=== PATIENT | female | born 1955 | race African-American/Black ===

== ENCOUNTER 2017-10-14 07:37 | Emergency (ER) | payer OTHER ==
[2017-10-14 07:49] VITALS: TEMP 98.3; BMI 29.5
--- NOTE | 2017-10-14 08:20 | PDOC ---
History of Present Illness - General Chief Complaint: Nasal Bleeding Stated Complaint: EPISODE OF EPISTAXIS Time Seen by Provider: 10/14/17 08:03 - History of Present Illness Initial Comments: 10/14/17 08:13 Chief complaint: Nosebleed History of present illness: Patient awoke this morning and soon began to have bleeding from the left side of her nose. This persisted for approximately 15 or 20 minutes, resulted in expectoration of several large clots, but resolved spontaneously. There is no bleeding now. She had a mild headache at the time, which is also resolved. She has had recent sinus congestion but denies any trauma, or picking. She has been using an air conditioner. Review of systems: Denies lightheadedness, dizziness, vertigo, unsteadiness of gait, chest pain, shortness of breath, abdominal pain, nausea, vomiting, diarrhea, visual or focal neurologic symptoms, unsteadiness of gait. There is been no sign of bleeding elsewhere, including urine, stool, gums, or joints. Past medical history: She had a similar episode of epistaxis approximately 2 weeks ago that resolved spontaneously. She has no medical problems and takes no daily medication. Specifically, she denies hypertension, diabetes, heart disease. 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 Otherwise negative Family history: No immediate family members with hypertension, diabetes, heart disease, blood disease or blood dyscrasias. Physical exam: Alert and oriented well-developed well-nourished no acute distress cheerful and cooperative Afebrile, vital signs normal except for minimally elevated blood pressure of 150 /75 on presentation. This is likely due to mild anxiety from the nosebleed. She is particularly distressed by the clots PERRLA, fundi benign, ENT clear. There is a small irritation on the left nasal septum, anteriorly, that may have been the site of the bleeding. However, there is no bleeding or bruising of present and no blood or clot in the nares or the throat. Neck supple without bruit mass or nodes Chest clear with full breath sounds bilaterally CV S1 and S2 normal without murmur rub or gallop pulses full and symmetric no JVD or edema no bruits Abdomen benign Skin clear, no rash, adequate turgor and wet mucous membranes No muscle or joint pain or swelling Impression: Epistaxis, self-limited, no sign of coagulation disorder or other blood disease. Probably the result of his severe conditioning and/or sinus symptoms Plan: Recommended to abstain from use of air-conditioner for several days. Control of nosebleeds with pressure and cool compresses or ice was reviewed. Reassured. Return if bleeding recurs and isn't controlled, or if other symptoms such as lightheadedness dizziness or chest pain develop. Fully ambulatory and in no distress upon discharge to follow-up as directed Past History - Past Medical History Allergies/Adverse Reactions: Allergies Allergy/AdvReac Type Severity Reaction Status Date / Time No Known Allergies Allergy Verified 10/14/17 07:38 Home Medications: Ambulatory Orders NK [No Known Home Medication] 10/14/17 COPD: No Other medical history: denies - Suicide/Smoking/Psychosocial Hx Smoking Status: Yes Smoking History: Former smoker Have you smoked in the past 12 months: No Number of Cigarettes Smoked Daily: 0 If you are a former smoker, when did you quit?: 15 years Information on smoking cessation initiated: No Hx Alcohol Use: Yes (social) Drug/Substance Use Hx: No Substance Use Type: Alcohol *Physical Exam - Vital Signs Last Vital Signs Temp Pulse Resp BP Pulse Ox 98.3 F 78 20 150/78 100 10/14/17 07:38 10/14/17 07:38 10/14/17 07:38 10/14/17 07:38 10/14/17 07:38 *DC/Admit/Observation/Transfer Diagnosis at time of Disposition: Epistaxis - Discharge Dispostion Disposition: HOME Condition at time of disposition: Improved Decision to Admit order: No - Referrals Referrals: Placido Keith MD [Staff Physician] - - Patient Instructions Printed Discharge Instructions: DI for Nosebleed Additional Instructions: Did not use air condition or for a few days. Return to ER if bleeding recurs and is not controlled with the measures discussed. Otherwise follow-up with ENT specialist as directed. - Post Discharge Activity Forms/Work/School Notes: Back to Work
[2017-10-14 08:54] VITALS: BP 141/87; PULSE 55
== END 2017-10-14 09:10 | disposition home or self-care (01) ==
LOC: FER 07:37
DX: R04.0 Epistaxis (principal); Z87.891 Personal history of nicotine dependence
CPT/HCPCS: 99281-25

== ENCOUNTER 2018-04-23 10:20 | Emergency (ER) | payer OTHER ==
[2018-04-23 10:41] VITALS: BP 118/76; PULSE 61; TEMP 98.4; BMI 31.1
--- NOTE | 2018-04-23 11:10 | PDOC ---
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 Since then she has had pain in the right lateral neck, shoulder, and right arm. Review of systems: No numbness, tingling, burning, or weakness of the arm. She has been working but not straining or lifting. Past medical history: Reviewed and noncontributory Social and family history reviewed and noncontributory Physical exam: Alert and oriented well-developed well-nourished no acute distress cheerful and cooperative Afebrile, vital signs normal Head atraumatic. PERRLA, fundi benign, ENT clear Neck is without deformity, full range of motion without pain, no vertebral body tenderness or deformity noted. There is mild tenderness over the right sternomastoid muscle with mild spasm. There is also mild tenderness over the right trapezius muscle. There are no sensory or motor deficits in the right arm, but there is mild pain with abduction of the shoulder that radiates from the sternomastoid muscle, along the trapezius, in down the right arm without radicular distribution. X-ray: Negative Impression: Mild muscle strain. No sign of significant neurological injury. 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 Fully ambulatory and in no significant distress at discharge to follow-up as directed. Light duty at work with no lifting or straining. Past History - Past Medical History Allergies/Adverse Reactions: Allergies Allergy/AdvReac Type Severity Reaction Status Date / Time No Known Allergies Allergy Verified 04/23/18 10:22 Home Medications: Ambulatory Orders Cyclobenzaprine HCl [Flexeril] 10 mg PO TID #15 tablet 04/23/18 Ibuprofen 600 mg PO TID #15 tablet 04/23/18 COPD: No - Suicide/Smoking/Psychosocial Hx Smoking Status: Yes Smoking History: Never smoked Have you smoked in the past 12 months: No Number of Cigarettes Smoked Daily: 0 If you are a former smoker, when did you quit?: 15 years Information on smoking cessation initiated: No Hx Alcohol Use: No Drug/Substance Use Hx: No Substance Use Type: Alcohol Trauma Specific PMHX - Complaint Specific PMHX Arthritis: No Back Injury: Yes Neck Injury: No Hx Sacro Iliac Joint Dysfunction: No *Physical Exam - Vital Signs Last Vital Signs Temp Pulse Resp BP Pulse Ox 98.4 F 61 20 118/76 100 04/23/18 10:21 04/23/18 10:21 04/23/18 10:21 04/23/18 10:21 04/23/18 10:21 Moderate Sedation - Procedure Monitoring Vital Signs: Procedure Monitoring Vital Signs Temperature 98.4 F 04/23/18 10:21 Pulse Rate 61 04/23/18 10:21 Respiratory Rate 20 04/23/18 10:21 Blood Pressure 118/76 04/23/18 10:21 O2 Sat by Pulse Oximetry (%) 100 04/23/18 10:21 *DC/Admit/Observation/Transfer Diagnosis at time of Disposition: Shoulder sprain Qualifiers: Encounter type: initial encounter Shoulder sprain type: unspecified sprain Laterality: right Qualified Code(s): S43.401A - Unspecified sprain of right shoulder joint, initial encounter - Discharge Dispostion Disposition: HOME Condition at time of disposition: Stable Decision to Admit order: No - Prescriptions Prescriptions: Cyclobenzaprine HCl [Flexeril] 10 mg PO TID #15 tablet Ibuprofen 600 mg PO TID #15 tablet - Referrals Referrals: Brain Hartmann MD [Staff Physician] - 1 week - Patient Instructions Printed Discharge Instructions: DI for Shoulder Sprain - Post Discharge Activity Forms/Work/School Notes: Back to Work
== END 2018-04-23 12:08 | disposition home or self-care (01) ==
LOC: FER 10:20
DX: S43.401A Unspecified sprain of right shoulder joint, initial encounter (principal); X58.XXXA Exposure to other specified factors, initial encounter; Y93.89 Activity, other specified; Y92.239 Unspecified place in hospital as the place of occurrence of the external cause; Y99.0 Civilian activity done for income or pay; Z87.891 Personal history of nicotine dependence
CPT/HCPCS: 73030-TC-RT-FY; 99281-25